=== PATIENT | female | born 1990 | race Hispanic/Latino ===

== ENCOUNTER 2017-09-10 19:33 | Emergency (ER) | payer SELFPAY ==
[2017-09-10] MEDS ORDERED: Ibuprofen 800 MG TAB ONE (19:51)
== END 2017-09-10 23:25 | disposition home or self-care (01) ==
LOC: ERS 19:33
DX: J11.1 Influenza due to unidentified influenza virus with other respiratory manifestations (principal)
CPT/HCPCS: 93005

== ENCOUNTER 2018-08-22 09:56 | Emergency (ER) | payer OTHER, SELFPAY ==
[2018-08-22] MEDS ORDERED: Ibuprofen 200 MG TAB ONE (10:27)
--- NOTE | 2018-08-22 11:07 | RAD ---
4 VIEW LEFT KNEE: Date: 08/22/18 INDICATION: Pain. FINDINGS: No evidence of fracture, dislocation, or significant arthropathy. No joint capsular distention. IMPRESSION: No acute osseous abnormality. POS: [facility]
--- NOTE | 2018-08-22 11:08 | RAD ---
2 VIEW CHEST: Date: 08/22/18 INDICATION: Pain. FINDINGS: No consolidation, effusion, or pneumothorax. Cardiac silhouette is within normal limits of size. Osse ous structures are intact. IMPRESSION: No focal consolidation. POS: [facility]
--- NOTE | 2018-08-22 11:08 | RAD ---
LUMBAR SPINE RADIOGRAPH SERIES: Date: 08/22/18 INDICATION: Low back pain. FINDINGS: Lumbar spine vertebral body height and alignment are maintained. Disc space heights are preserved. IMPRESSION: No acute osseous abnormality. POS: [facility]
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
== END 2018-08-22 13:53 | disposition home or self-care (01) ==
LOC: SCSER 09:56
DX: S16.1XXA Strain of muscle, fascia and tendon at neck level, initial encounter (principal); S39.012A Strain of muscle, fascia and tendon of lower back, initial encounter; S83.92XA Sprain of unspecified site of left knee, initial encounter; R20.2 Paresthesia of skin; V43.52XA Car driver injured in collision with other type car in traffic accident, initial encounter
CPT/HCPCS: 71046; 72100; 72125; 72141